=== PATIENT | female | born 1965 | race Caucasian/White ===

== ENCOUNTER 2021-05-14 12:49 | Outpatient (CLI) | payer OTHER | END 2021-05-14 12:50 | disposition home or self-care (01) | LOC: CSHWCC 12:49 | PROVIDERS: ATTEND Nurse Practitioner Family | DX: T81.89XD Other complications of procedures, not elsewhere classified, subsequent encounter (principal); T81.30XD Disruption of wound, unspecified, subsequent encounter; I67.82 Cerebral ischemia; E28.2 Polycystic ovarian syndrome; F41.1 Generalized anxiety disorder; I10 Essential (primary) hypertension; E66.01 Morbid (severe) obesity due to excess calories ==

== ENCOUNTER 2021-05-17 09:58 | Outpatient (CLI) | payer OTHER | END 2021-05-17 09:59 | disposition home or self-care (01) | LOC: CSHWCC 09:58 | PROVIDERS: ATTEND Nurse Practitioner Family | DX: T81.89XD Other complications of procedures, not elsewhere classified, subsequent encounter (principal); T81.30XD Disruption of wound, unspecified, subsequent encounter; I67.82 Cerebral ischemia; E28.2 Polycystic ovarian syndrome; E66.01 Morbid (severe) obesity due to excess calories; F41.1 Generalized anxiety disorder; I10 Essential (primary) hypertension | CPT/HCPCS: 97605 ==

== ENCOUNTER 2021-05-21 12:45 | Outpatient (CLI) | payer OTHER | END 2021-05-21 12:46 | disposition home or self-care (01) | LOC: CSHWCC 12:45 | PROVIDERS: ATTEND Nurse Practitioner Family | DX: T81.89XD Other complications of procedures, not elsewhere classified, subsequent encounter (principal); T81.30XD Disruption of wound, unspecified, subsequent encounter; I67.82 Cerebral ischemia; E28.2 Polycystic ovarian syndrome; E66.01 Morbid (severe) obesity due to excess calories; F41.1 Generalized anxiety disorder; I10 Essential (primary) hypertension | CPT/HCPCS: 97605 ==

== ENCOUNTER 2021-05-24 13:56 | Outpatient (CLI) | payer OTHER | END 2021-05-24 13:57 | disposition home or self-care (01) | LOC: CSHWCC 13:56 | PROVIDERS: ATTEND Nurse Practitioner Family | DX: T81.89XD Other complications of procedures, not elsewhere classified, subsequent encounter (principal); T81.30XD Disruption of wound, unspecified, subsequent encounter; E28.2 Polycystic ovarian syndrome; I67.82 Cerebral ischemia; F41.1 Generalized anxiety disorder; I10 Essential (primary) hypertension; E66.01 Morbid (severe) obesity due to excess calories ==

== ENCOUNTER 2021-05-28 11:09 | Outpatient (CLI) | payer OTHER | END 2021-05-28 11:10 | disposition home or self-care (01) | LOC: CSHWCC 11:09 | PROVIDERS: ATTEND Nurse Practitioner Family | DX: T81.89XD Other complications of procedures, not elsewhere classified, subsequent encounter (principal) ==

== ENCOUNTER 2021-05-31 11:22 | Outpatient (CLI) | payer OTHER | END 2021-05-31 11:23 | disposition home or self-care (01) | LOC: CSHWCC 11:22 | PROVIDERS: ATTEND Nurse Practitioner Family | DX: T81.89XD Other complications of procedures, not elsewhere classified, subsequent encounter (principal) | CPT/HCPCS: 97605; 99212; G0463 ==

== ENCOUNTER 2021-06-04 13:22 | Outpatient (CLI) | payer OTHER | END 2021-06-04 13:23 | disposition home or self-care (01) | LOC: CSHWCC 13:22 | PROVIDERS: ATTEND Nurse Practitioner Family | DX: T81.89XD Other complications of procedures, not elsewhere classified, subsequent encounter (principal) | CPT/HCPCS: 97605; 99211; G0463 ==

== ENCOUNTER 2021-06-10 10:40 | Outpatient (CLI) | payer OTHER | END 2021-06-10 10:41 | disposition home or self-care (01) | LOC: CSHWCC 10:40 | PROVIDERS: ATTEND Nurse Practitioner Family | DX: T81.89XD Other complications of procedures, not elsewhere classified, subsequent encounter (principal) | CPT/HCPCS: 11042; 97605 ==

== ENCOUNTER 2021-06-14 08:17 | Outpatient (CLI) | payer OTHER | END 2021-06-14 08:18 | disposition home or self-care (01) | LOC: CSHWCC 08:17 | PROVIDERS: ATTEND Nurse Practitioner Family | DX: T81.89XD Other complications of procedures, not elsewhere classified, subsequent encounter (principal) ==

== ENCOUNTER 2021-06-17 12:30 | Outpatient (CLI) | payer OTHER | END 2021-06-17 12:31 | disposition home or self-care (01) | LOC: CSHWCC 12:30 | PROVIDERS: ATTEND Nurse Practitioner Family | DX: T81.89XD Other complications of procedures, not elsewhere classified, subsequent encounter (principal) ==

== ENCOUNTER 2021-06-24 11:10 | Outpatient (CLI) | payer SELFPAY | END 2021-06-24 11:11 | disposition home or self-care (01) | LOC: CSHWCC 11:10 | PROVIDERS: ATTEND Nurse Practitioner Family | DX: T81.89XD Other complications of procedures, not elsewhere classified, subsequent encounter (principal) | CPT/HCPCS: 99212; G0463 ==

== ENCOUNTER 2021-07-05 10:00 | Outpatient (CLI) | payer OTHER | END 2021-07-05 10:01 | disposition home or self-care (01) | LOC: CSHWCC 10:00 | PROVIDERS: ATTEND Nurse Practitioner Family | DX: T81.89XD Other complications of procedures, not elsewhere classified, subsequent encounter (principal) | CPT/HCPCS: 99212; G0463 ==

== ENCOUNTER 2021-08-09 11:15 | Outpatient (CLI) | payer OTHER | END 2021-08-09 11:16 | disposition home or self-care (01) | LOC: CSHWCC 11:15 | PROVIDERS: ATTEND Nurse Practitioner Family | DX: T81.89XD Other complications of procedures, not elsewhere classified, subsequent encounter (principal) | CPT/HCPCS: 99211; G0463 ==